=== PATIENT | female | born 1980 | race Caucasian/White ===

== ENCOUNTER 2023-09-13 10:38 | Emergency (ER) | payer OTHER ==
[~2023-09-13] VITALS: Ht 175.3 cm; Wt 56.2 kg
[2023-09-13 11:57] LABS: HEMATOCRIT 36.6 % (36.0-45.00); HEMOGLOBIN 12.6 g/dL (12.0-15.00); MEAN CELL VOLUME 91.2 fL (80.00-100.00); MEAN CORPUSCULAR HEMOGLOBIN 31.4 pg (27.00-32.0); MEAN CORPUSCULAR HGB CONC 34.5 g/dl (32.0-36.0); PLATELET COUNT 178 K/uL (150-450); RED BLOOD COUNT 4.02 M/uL (4.00-6.00); RED CELL DISTRIBUTION WIDTH 13.1 % (11.5-14.5)
[2023-09-13] MEDS ORDERED: OSEL75CA PO (12:47)
[2023-09-13] MEDS ORDERED: TUSNEL LIQUID178 ML PO (12:47)
== END 2023-09-13 13:15 | disposition home or self-care (01) ==
LOC: ER 10:38
PROVIDERS: General Practice
DX: J11.1 Influenza due to unidentified influenza virus with other respiratory manifestations (principal)